=== PATIENT | male | born 1950 | race African-American/Black ===

== ENCOUNTER 2016-12-08 11:41 | Observation (INO) | payer MEDICARE, MEDICAID ==
[~2016-12-08] VITALS: Ht 160 cm; Wt 86.4 kg
[~2016-12-08 11:41] MED LIST: AMLODIPINE BES2.5 MG PO; AMLODIPINE2.5 MG PO; AMLODIPINE5 MG PO; ASPIRIN LOW DOS81 M2 PO; ATENOLOL25 MG PO; ATORVASTATIN CA10 MG PO; ATORVASTATIN CA40 MG PO; BACTRIM DS1 TAB PO; CARVEDILOL25 MG PO; COUMADIN5 MG PO; ELIQUIS5 MG PO; FUROSEMIDE40 MG PO; GLUCOTROL5 MG OR; HYDROCHLOROT12.5 MG PO; HYDROMORPHON8 MG PO; INSULIN; ISOSORBIDE MONO30 MG PO; LASIX 20 MG20 MG/TAB PO; LEVAQUIN500 MG PO; LEVOTHYROXIN75 MCG PO; LISINOPRIL20 MG PO; LOPID600 MG PO; LORTAB5 PO; METFORMIN500 M1 OR; METRONIDAZOL500 MG PO; MICRO-K10 ME1 PO; MINOCYCLINE100 MG PO; MIRALAX3350 NF PO; NOVOLIN 70/30 SC; NOVOLOG MIX100 U/ML SC; PANTOPRAZOLE SO40 MG PO; PERCOCET 10/31 COMBO PO; PLAVIX75 MG PO; PREVACID30 M3 PO; PRINZIDE/ZESTOR1 TAB OR; TERAZOSIN1 MG PO; TORSEMIDE20 M1 PO; VERAPAMIL240 MG OR; VITAMIN D350000 UNIT PO; WARFARIN5 MG PO; WARFARIN7.5 MG PO; ZOFRAN ODT8 MG PO
[2016-12-08 16:04] LABS: HEMATOCRIT 40.1 % (39.0-50.0); HEMOGLOBIN 12.9 g/dl (14.0-18.0); IMMATURE GRANULOCYTES 0.6 % (0.0-1.0); MEAN CELL VOLUME 88.3 fL CALC (80.0-100.0); MEAN CORPUSCULAR HGB 28.4 pG CALC (26.0-32.0); MEAN CORPUSCULAR HGB CONC 32.2 g/L CALC (32.0-36.0); NEUT# 1.4 thou/uL (1.82-7.42); RED BLOOD COUNT 4.54 mill/uL (4.70-6.10); RED CELL DISTRI WIDTH 13.7 % (11.5-15.5)
[2016-12-08 16:23] LABS: ALKALINE PHOSPHATASE 93 u/l (38-126); ANION GAP 12 (6-22 (CALC)); BILIRUBIN, TOTAL 0.5 mg/dL (0.0-1.4); BUN 15 mg/dL (8-23); BUN/CREATININE RATIO 16 (12-20 (CALC)); CALCIUM 8.7 mg/dL (8.4-10.2); CARBON DIOXIDE 26 mmol/l (22-30); CHLORIDE 100 mmol/l (95-108); CREATININE 0.9 mg/dL (0.7-1.3); GFR > 60 ML/MIN (>=60 (CALC)); GFR FOR AFR.AMER. > 60 ML/MIN (>=60 (CALC)); GLUCOSE 260 mg/dL (82-115); POTASSIUM 4.2 mmol/l (3.5-5.1); SGOT/AST 63 u/l (19-48); SGPT/ALT 53 u/l (11-66); SODIUM 135 mmol/l (137-146); TOTAL PROTEIN 7.1 g/dL (6.3-8.2)
[2016-12-08 16:35] LABS: MYOGLOBIN 51 ng/mL (0 - 121)
[2016-12-08 19:38] VITALS: BP 236/118
[2016-12-08 20:56] LABS: URINE BILIRUBIN - DIPSTICK NEGATIVE (NEGATIVE); URINE BLOOD DIPSTICK SMALL (NEGATIVE); URINE CLARITY CLEAR; URINE COLOR YELLOW; URINE GLUCOSE - DIPSTICK 500 mg/dL (NEGATIVE); URINE KETONE NEGATIVE (NEGATIVE); URINE LEUK ESTERASE NEGATIVE (NEGATIVE); URINE NITRITE - DIPSTICK NEGATIVE (Negative); URINE PH 6.5 (4.5-8.0); URINE PROTEIN - DIPSTICK >=300 mg/dL (NEG-TRACE); URINE SPECIFIC GRAVITY 1.025; URINE UROBILINOGEN - DIPSTICK >=8.0 E.U./dL (0.2)
[2016-12-08 21:00] VITALS: BP 186/96
[2016-12-08 21:21] LABS: URINE SQUAMOUS EPITHELIAL CELL FEW EPI/hpf (0-FEW)
[2016-12-08 21:22] LABS: BARBITURATES NEGATIVE (NEGATIVE); COCAINE POSITIVE (NEGATIVE); METHADONE NEGATIVE (NEGATIVE); OXCYCODONE NEGATIVE (NEGATIVE); TETRAHYDROCANNABIONOL NEGATIVE (NEGATIVE); TRICYLIC ANTIDEPRESSANTS NEGATIVE (NEGATIVE)
[2016-12-08 22:08] VITALS: BP 178/93
[2016-12-08 23:30] VITALS: BP 145/83
[2016-12-09 04:20] VITALS: BP 118/67
[2016-12-09 05:58] LABS: HEMATOCRIT 36.7 % (39.0-50.0); HEMOGLOBIN 12.4 g/dl (14.0-18.0); MEAN CELL VOLUME 87.4 fL CALC (80.0-100.0); MEAN CORPUSCULAR HGB 29.5 pG CALC (26.0-32.0); MEAN CORPUSCULAR HGB CONC 33.8 g/L CALC (32.0-36.0); RED BLOOD COUNT 4.2 mill/uL (4.70-6.10); RED CELL DISTRI WIDTH 13.8 % (11.5-15.5)
[2016-12-09 06:19] LABS: ANION GAP 10 (6-22 (CALC)); BUN 15 mg/dL (8-23); BUN/CREATININE RATIO 13 (12-20 (CALC)); CALCIUM 8.5 mg/dL (8.4-10.2); CARBON DIOXIDE 27 mmol/l (22-30); CHLORIDE 100 mmol/l (95-108); CREATININE 1.1 mg/dL (0.7-1.3); GFR > 60 ML/MIN (>=60 (CALC)); GFR FOR AFR.AMER. > 60 ML/MIN (>=60 (CALC)); GLUCOSE 274 mg/dL (82-115); MAGNESIUM 1.4 mg/dL (1.6-2.3); POTASSIUM 4.1 mmol/l (3.5-5.1); SODIUM 132 mmol/l (137-146)
[2016-12-09 06:50] LABS: TSH, 3RD GENERATION 1.21 uIU/mL (0.47 - 4.68)
[2016-12-09 07:36] VITALS: BP 130/68
[2016-12-09] MEDS ORDERED: CARVEDILOL25 MG PO (12:14)
[2016-12-09] MEDS ORDERED: ATORVASTATIN CA40 MG PO (12:14)
[2016-12-09] MEDS ORDERED: AMLODIPINE5 MG PO (12:14)
[2016-12-09] MEDS ORDERED: PANTOPRAZOLE SO40 MG PO (12:15)
[2016-12-09] MEDS ORDERED: TAMSULOSIN HCL0.4 MG PO (12:16)
[2016-12-09] MEDS ORDERED: LEVOTHYROXIN75 MCG PO (12:16)
[2016-12-09] MEDS ORDERED: NOVOLIN 70/30 SC (12:16)
[2016-12-09] MEDS ORDERED: BACTRIM DS1 TAB PO (12:17)
[2016-12-09] MEDS ORDERED: KEFLEX500 M1 PO (12:17)
[2016-12-09] MEDS ORDERED: HYZAAR1 TA1 PO (12:19)
[2016-12-09] MEDS ORDERED: ELIQUIS5 MG PO (12:30)
[2016-12-09 15:28] VITALS: BP 123/80
== END 2016-12-09 18:40 | disposition home or self-care (01) ==
LOC: ENPENDDIS → ED 11:41 → ED-I 16:40 → ED 17:23 → MS2 17:24
PROVIDERS: Emergency Medicine; ADMIT Internal Medicine; ATTEND Internal Medicine
PROC: 0H9BXZZ Drainage of Right Upper Arm Skin, External Approach (ICD-10-PCS; principal; 2016-12-08)
PROC: 0H9CXZZ Drainage of Left Upper Arm Skin, External Approach (ICD-10-PCS; 2016-12-08)
PROC: 05HM33Z Insertion of Infusion Device into Right Internal Jugular Vein, Percutaneous Approach (ICD-10-PCS; 2016-12-08)
PROC: B543ZZA Ultrasonography of Right Jugular Veins, Guidance (ICD-10-PCS; 2016-12-08)
DX: E11.628 Type 2 diabetes mellitus with other skin complications (principal); L02.414 Cutaneous abscess of left upper limb; L02.413 Cutaneous abscess of right upper limb; L03.114 Cellulitis of left upper limb; L03.113 Cellulitis of right upper limb; F14.10 Cocaine abuse, uncomplicated; I16.0 Hypertensive urgency; I12.9 Hypertensive chronic kidney disease with stage 1 through stage 4 chronic kidney disease, or unspecified chronic kidney disease; E11.22 Type 2 diabetes mellitus with diabetic chronic kidney disease; N18.3 Chronic kidney disease, stage 3 (moderate); E03.9 Hypothyroidism, unspecified; E78.5 Hyperlipidemia, unspecified; I25.10 Atherosclerotic heart disease of native coronary artery without angina pectoris; B19.20 Unspecified viral hepatitis C without hepatic coma; E11.65 Type 2 diabetes mellitus with hyperglycemia; Z79.4 Long term (current) use of insulin; Z86.718 Personal history of other venous thrombosis and embolism; Z91.14 Patient's other noncompliance with medication regimen; Z95.5 Presence of coronary angioplasty implant and graft

== ENCOUNTER 2017-09-06 09:06 | Emergency (ER) | payer MEDICARE, MEDICAID ==
[~2017-09-06] VITALS: Ht 160 cm; Wt 80.5 kg
[~2017-09-06 09:06] MED LIST changes: +HYZAAR1 TA1 PO; +KEFLEX500 M1 PO; +TAMSULOSIN HCL0.4 MG PO
[2017-09-06 09:40] LABS: HEMATOCRIT 41.8 % (39.0-50.0); HEMOGLOBIN 13.2 g/dl (14.0-18.0); IMMATURE GRANULOCYTES 0.7 % (0.0-1.0); MEAN CELL VOLUME 90.7 fL CALC (80.0-100.0); MEAN CORPUSCULAR HGB 28.6 pG CALC (26.0-32.0); MEAN CORPUSCULAR HGB CONC 31.6 g/L CALC (32.0-36.0); NEUT# 3.48 thou/uL (1.82-7.42); RED BLOOD COUNT 4.61 mill/uL (4.70-6.10); RED CELL DISTRI WIDTH 14.6 % (11.5-15.5)
[2017-09-06 10:13] LABS: BUN 17 mg/dL (8-23); BUN/CREATININE RATIO 15 (12-20 (CALC)); CARBON DIOXIDE 26 mmol/l (22-30); CHLORIDE 103 mmol/l (95-108); CREATININE 1.2 mg/dL (0.7-1.3); GFR > 60 ML/MIN (>=60 (CALC)); GFR FOR AFR.AMER. > 60 ML/MIN (>=60 (CALC)); SODIUM 138 mmol/l (137-146)
[2017-09-06 10:16] LABS: ANION GAP 14 (6-22 (CALC))
[2017-09-06] MEDS ORDERED: TERAZOSIN1 MG PO (10:23)
[2017-09-06] MEDS ORDERED: TRADJENTA5 MG PO (10:23)
[2017-09-06 11:18] VITALS: BP 169/93
== END 2017-09-06 11:10 | disposition short-term general hospital (02) ==
LOC: ED 09:06
PROVIDERS: Family Medicine
DX: I20.0 Unstable angina (principal); I10 Essential (primary) hypertension; I25.2 Old myocardial infarction; E78.00 Pure hypercholesterolemia, unspecified; E11.9 Type 2 diabetes mellitus without complications; Z79.4 Long term (current) use of insulin; F14.10 Cocaine abuse, uncomplicated; R94.31 Abnormal electrocardiogram [ECG] [EKG]; L03.114 Cellulitis of left upper limb; L03.113 Cellulitis of right upper limb

== ENCOUNTER 2019-01-13 11:50 | Emergency (ER) | payer MEDICARE, MEDICAID ==
[~2019-01-13] VITALS: Ht 160 cm; Wt 85.0 kg
[~2019-01-13 11:50] MED LIST changes: +TRADJENTA5 MG PO
[2019-01-13 12:44] LABS: HEMATOCRIT 36.9 % (39.0-50.0); IMMATURE GRANULOCYTES 0.5 % (0.0-5.0); MEAN CELL VOLUME 91.8 fL CALC (80.0-100.0); MEAN CORPUSCULAR HGB 29.9 pG CALC (26.0-32.0); MEAN CORPUSCULAR HGB CONC 32.5 g/L CALC (32.0-36.0); NEUT# 1.71 thou/uL (1.82-7.42); RED BLOOD COUNT 4.02 mill/uL (4.70-6.10); RED CELL DISTRI WIDTH 13.2 % (11.5-15.5)
[2019-01-13 13:06] LABS: ALBUMIN 3.4 g/dL (3.2-5.0); BILIRUBIN, TOTAL 0.5 mg/dL (0.0-1.4); CREATININE 1.9 mg/dL (0.7-1.3); TOTAL PROTEIN 7.6 g/dL (6.3-8.2)
[2019-01-13 13:07] LABS: POTASSIUM 3.5 mmol/l (3.5-5.1)
[2019-01-13 13:25] LABS: INTERNATIONAL NORMALIZED RATIO 1.1 RATIO (0.7-1.3); PROTHROMBIN TIME 11.5 SECONDS (9.0-12.5)
[2019-01-13 13:41] LABS: URINE BILIRUBIN - DIPSTICK NEGATIVE (NEGATIVE); URINE BLOOD DIPSTICK MODERATE (NEGATIVE); URINE COLOR YELLOW; URINE GLUCOSE - DIPSTICK 100 mg/dL (NEGATIVE); URINE KETONE NEGATIVE (NEGATIVE); URINE PROTEIN - DIPSTICK >=300 mg/dL (NEG-TRACE); URINE SPECIFIC GRAVITY 1.015; URINE UROBILINOGEN - DIPSTICK 0.2 E.U./dL (0.2)
[2019-01-13 13:43] LABS: URINE LEUK ESTERASE MODERATE (NEGATIVE); URINE NITRITE - DIPSTICK POSITIVE (Negative)
[2019-01-13 13:45] LABS: URINE BACTERIA MODERATE hpf; URINE EPITHELIAL CELLS FEW EPI/hpf (0-FEW)
[2019-01-13] MEDS ORDERED: CEPHALEXIN500 M1 PO ×2 (14:44→15:55)
[2019-01-13 16:30] VITALS: BP 175/82
== END 2019-01-13 16:30 | disposition home or self-care (01) ==
LOC: ED 11:50
PROVIDERS: Emergency Medicine
DX: S01.01XA Laceration without foreign body of scalp, initial encounter (principal); S13.9XXA Sprain of joints and ligaments of unspecified parts of neck, initial encounter; N39.0 Urinary tract infection, site not specified; E11.9 Type 2 diabetes mellitus without complications; I10 Essential (primary) hypertension; I25.2 Old myocardial infarction; W18.30XA Fall on same level, unspecified, initial encounter; Y92.002 Bathroom of unspecified non-institutional (private) residence as the place of occurrence of the external cause; B95.61 Methicillin susceptible Staphylococcus aureus infection as the cause of diseases classified elsewhere

== ENCOUNTER 2019-02-02 18:00 | Emergency (ER) | payer MEDICARE, MEDICAID ==
[~2019-02-02] VITALS: Ht 160 cm; Wt 202.0 kg
[~2019-02-02 18:00] MED LIST changes: +CEPHALEXIN500 M1 PO
[2019-02-02 19:30] LABS: HEMOGLOBIN 11.7 g/dl (14.0-18.0); IMMATURE GRANULOCYTES 0.4 % (0.0-5.0); MEAN CORPUSCULAR HGB 29.4 pG CALC (26.0-32.0); MEAN CORPUSCULAR HGB CONC 31.6 g/L CALC (32.0-36.0); NEUT# 5.24 thou/uL (1.82-7.42); RED BLOOD COUNT 3.98 mill/uL (4.70-6.10); RED CELL DISTRI WIDTH 14.1 % (11.5-15.5)
[2019-02-02 19:52] LABS: ALBUMIN 3.3 g/dL (3.2-5.0); CREATININE 1.8 mg/dL (0.7-1.3); POTASSIUM 3.8 mmol/l (3.5-5.1); TOTAL PROTEIN 7.8 g/dL (6.3-8.2)
[2019-02-02 19:56] LABS: BILIRUBIN, TOTAL 0.9 mg/dL (0.0-1.4)
[2019-02-02 20:22] LABS: TSH, 3RD GENERATION 3.07 uIU/mL (0.47 - 4.68)
[2019-02-02 22:38] LABS: URINE BILIRUBIN - DIPSTICK NEGATIVE (NEGATIVE); URINE BLOOD DIPSTICK SMALL (NEGATIVE); URINE COLOR YELLOW; URINE GLUCOSE - DIPSTICK 100 mg/dL (NEGATIVE); URINE KETONE NEGATIVE (NEGATIVE); URINE LEUK ESTERASE NEGATIVE (NEGATIVE); URINE NITRITE - DIPSTICK NEGATIVE (Negative); URINE PROTEIN - DIPSTICK >=300 mg/dL (NEG-TRACE); URINE SPECIFIC GRAVITY 1.025
[2019-02-02 22:41] LABS: BARBITURATES NEGATIVE (NEGATIVE); COCAINE POSITIVE (NEGATIVE); METHADONE NEGATIVE (NEGATIVE); TETRAHYDROCANNABIONOL NEGATIVE (NEGATIVE); TRICYLIC ANTIDEPRESSANTS NEGATIVE (NEGATIVE); URINE AMORPH SEDIMENT FEW hpf (NONE-FER); URINE WBC 0-2 WBC/hpf (0-5)
[2019-02-02 22:42] LABS: OXCYCODONE NEGATIVE (NEGATIVE)
[2019-02-02 23:35] VITALS: BP 172/68
== END 2019-02-02 23:55 | disposition home or self-care (01) ==
LOC: ED 18:00
PROVIDERS: Emergency Medicine; Family Medicine
DX: R53.1 Weakness (principal); F14.90 Cocaine use, unspecified, uncomplicated; E11.9 Type 2 diabetes mellitus without complications; I10 Essential (primary) hypertension; I25.10 Atherosclerotic heart disease of native coronary artery without angina pectoris; I25.2 Old myocardial infarction

== ENCOUNTER 2019-03-27 08:13 | Emergency (ER) | payer MEDICARE, MEDICAID ==
[~2019-03-27] VITALS: Ht 160 cm; Wt 85.0 kg
[2019-03-27 09:42] LABS: HEMATOCRIT 36.4 % (39.0-50.0); HEMOGLOBIN 11.8 g/dl (14.0-18.0); IMMATURE GRANULOCYTES 0.3 % (0.0-5.0); MEAN CELL VOLUME 88.6 fL CALC (80.0-100.0); MEAN CORPUSCULAR HGB 28.7 pG CALC (26.0-32.0); MEAN CORPUSCULAR HGB CONC 32.4 g/L CALC (32.0-36.0); NEUT# 3.7 thou/uL (1.82-7.42); RED BLOOD COUNT 4.11 mill/uL (4.70-6.10); RED CELL DISTRI WIDTH 13.4 % (11.5-15.5)
[2019-03-27 10:03] LABS: ALBUMIN 3.5 g/dL (3.2-5.0); BILIRUBIN, TOTAL 0.7 mg/dL (0.0-1.4); CREATININE 1.6 mg/dL (0.7-1.3); POTASSIUM 4.6 mmol/l (3.5-5.1); TOTAL PROTEIN 8.5 g/dL (6.3-8.2)
[2019-03-27] MEDS ORDERED: MEDDOSEPAK PO (10:21)
[2019-03-27] MEDS ORDERED: FLEXERIL PO (10:21)
[2019-03-27 10:31] VITALS: BP 183/82
== END 2019-03-27 11:10 | disposition home or self-care (01) ==
LOC: ED 08:13
PROVIDERS: Emergency Medicine
DX: M54.5 Low back pain (principal)

== ENCOUNTER 2019-03-29 21:35 | Emergency (ER) | payer MEDICARE, MEDICAID ==
[~2019-03-29] VITALS: Ht 160 cm; Wt 81.8 kg
[~2019-03-29 21:35] MED LIST changes: +FLEXERIL PO; +MEDDOSEPAK PO
[2019-03-29] MEDS ORDERED: LOSARTAN POTASS50 MG PO (21:55)
[2019-03-29] MEDS ORDERED: HYDROMORPHON8 MG PO (21:55)
[2019-03-29] MEDS ORDERED: CARVEDILOL25 MG PO (21:55)
[2019-03-29] MEDS ORDERED: ATORVASTATIN CA40 MG PO (21:55)
[2019-03-29] MEDS ORDERED: PANTOPRAZOLE SO40 M1 PO (21:55)
[2019-03-29] MEDS ORDERED: AMLODIPINE BESYL5 MG PO (21:56)
[2019-03-29] MEDS ORDERED: ELIQUIS5 MG PO (21:56)
[2019-03-29 22:09] LABS: HEMATOCRIT 31.8 % (39.0-50.0); HEMOGLOBIN 10.5 g/dl (14.0-18.0); IMMATURE GRANULOCYTES 0.5 % (0.0-5.0); MEAN CELL VOLUME 86.4 fL CALC (80.0-100.0); MEAN CORPUSCULAR HGB 28.5 pG CALC (26.0-32.0); NEUT# 8.65 thou/uL (1.82-7.42); RED BLOOD COUNT 3.68 mill/uL (4.70-6.10); RED CELL DISTRI WIDTH 13.2 % (11.5-15.5)
[2019-03-29 22:19] LABS: BILIRUBIN, TOTAL 0.5 mg/dL (0.0-1.4); CREATININE 1.6 mg/dL (0.7-1.3); POTASSIUM 4.4 mmol/l (3.5-5.1); TOTAL PROTEIN 7.8 g/dL (6.3-8.2)
[2019-03-29 23:22] LABS: URINE BILIRUBIN - DIPSTICK NEGATIVE (NEGATIVE); URINE BLOOD DIPSTICK MODERATE (NEGATIVE); URINE COLOR YELLOW; URINE GLUCOSE - DIPSTICK >=1000 mg/dL (NEGATIVE); URINE KETONE NEGATIVE (NEGATIVE); URINE LEUK ESTERASE NEGATIVE (NEGATIVE); URINE NITRITE - DIPSTICK NEGATIVE (Negative); URINE PROTEIN - DIPSTICK >=300 mg/dL (NEG-TRACE); URINE SPECIFIC GRAVITY 1.025
[2019-03-29 23:24] LABS: URINE EPITHELIAL CELLS FEW EPI/hpf (0-FEW); URINE MUCUS MODERATE hpf (NONE-FEW)
[2019-03-29 23:25] LABS: BARBITURATES NEGATIVE (NEGATIVE); COCAINE POSITIVE (NEGATIVE); METHADONE NEGATIVE (NEGATIVE); OXCYCODONE NEGATIVE (NEGATIVE); TETRAHYDROCANNABIONOL NEGATIVE (NEGATIVE); TRICYLIC ANTIDEPRESSANTS NEGATIVE (NEGATIVE)
[2019-03-30] VITALS: BP 146/82
== END 2019-03-30 00:05 | disposition home or self-care (01) ==
LOC: ED 21:35
PROVIDERS: Family Medicine
DX: S39.012A Strain of muscle, fascia and tendon of lower back, initial encounter (principal); S30.0XXA Contusion of lower back and pelvis, initial encounter; F14.10 Cocaine abuse, uncomplicated; R31.9 Hematuria, unspecified; I12.9 Hypertensive chronic kidney disease with stage 1 through stage 4 chronic kidney disease, or unspecified chronic kidney disease; E11.22 Type 2 diabetes mellitus with diabetic chronic kidney disease; E11.21 Type 2 diabetes mellitus with diabetic nephropathy; N18.9 Chronic kidney disease, unspecified; I25.10 Atherosclerotic heart disease of native coronary artery without angina pectoris; I25.2 Old myocardial infarction; T46.5X6A Underdosing of other antihypertensive drugs, initial encounter; W19.XXXA Unspecified fall, initial encounter; Z91.128 Patient's intentional underdosing of medication regimen for other reason; Z91.81 History of falling

== ENCOUNTER 2019-04-02 15:05 | Emergency (ER) | payer MEDICARE, MEDICAID ==
[~2019-04-02] VITALS: Ht 160 cm; Wt 81.0 kg
[~2019-04-02 15:05] MED LIST changes: +AMLODIPINE BESYL5 MG PO; +LOSARTAN POTASS50 MG PO; +PANTOPRAZOLE SO40 M1 PO
[2019-04-02] MEDS ORDERED: STERAPRED DS10 MG PO (18:20)
[2019-04-02 18:33] VITALS: BP 154/90
[2019-04-02 18:49] LABS: URINE BILIRUBIN - DIPSTICK NEGATIVE (NEGATIVE); URINE BLOOD DIPSTICK SMALL (NEGATIVE); URINE COLOR YELLOW; URINE GLUCOSE - DIPSTICK 100 mg/dL (NEGATIVE); URINE KETONE NEGATIVE (NEGATIVE); URINE LEUK ESTERASE NEGATIVE (NEGATIVE); URINE NITRITE - DIPSTICK NEGATIVE (Negative); URINE PH 5.5 (4.5-8.0); URINE PROTEIN - DIPSTICK 100 mg/dL (NEG-TRACE); URINE SPECIFIC GRAVITY 1.025
[2019-04-02 18:52] LABS: URINE SQUAMOUS EPITHELIAL CELL FEW EPI/hpf (0-FEW)
[2019-04-02 18:54] LABS: BARBITURATES NEGATIVE (NEGATIVE); COCAINE POSITIVE (NEGATIVE); METHADONE NEGATIVE (NEGATIVE); OXCYCODONE NEGATIVE (NEGATIVE); TETRAHYDROCANNABIONOL NEGATIVE (NEGATIVE); TRICYLIC ANTIDEPRESSANTS POSITIVE (NEGATIVE)
== END 2019-04-02 19:00 | disposition home or self-care (01) ==
LOC: ED 15:05
PROVIDERS: Family Medicine
DX: I10 Essential (primary) hypertension (principal); G89.29 Other chronic pain; E11.9 Type 2 diabetes mellitus without complications; I25.2 Old myocardial infarction; M54.5 Low back pain

== ENCOUNTER 2022-08-30 05:53 | Emergency (ER) | payer MEDICARE, MEDICAID ==
[~2022-08-30] VITALS: Ht 160 cm; Wt 79.0 kg
[~2022-08-30 05:53] MED LIST changes: +STERAPRED DS10 MG PO
[2022-08-30 06:28] VITALS: BP 158/82
== END 2022-08-30 06:30 | disposition left against medical advice (07) ==
LOC: ED 05:53
DX: R53.1 Weakness (principal); I12.0 Hypertensive chronic kidney disease with stage 5 chronic kidney disease or end stage renal disease; E11.22 Type 2 diabetes mellitus with diabetic chronic kidney disease; N18.6 End stage renal disease; Z99.2 Dependence on renal dialysis; I25.2 Old myocardial infarction; E78.00 Pure hypercholesterolemia, unspecified; Z53.29 Procedure and treatment not carried out because of patient's decision for other reasons

== ENCOUNTER 2022-12-12 07:43 | Observation (INO) | payer MEDICARE, MEDICAID ==
[2022-12-12] VITALS (42 sets, daily range): BP systolic 114–186; BP diastolic 74–109
[~2022-12-12] VITALS: Ht 160 cm; Wt 82.3 kg
--- NOTE | 2022-12-12 07:43 | NUR ---
PATIENT TO ROOM VIA EMS
--- NOTE | 2022-12-12 08:16 | NUR ---
AT BEDSIDE FOR CENTRAL LINE INSERTION. CONSENT ON FILE. HE REVIEWED PLAN OF CARE WITH PATIENT.
--- NOTE | 2022-12-12 08:20 | NUR ---
WHILE INSERTION OF CENTRAL LINE IN PROGRESS, DR. BARKER GAVE VERBAL ORDER TO GIVE 1 0.4MG SUB LING NTG. CENTRAL LINE IN THE RIGHT GROIN COMPLETED , TRIPLE LUMEN. NTG GTT INITIATED AT 20MCG. BP 186/105
--- NOTE | 2022-12-12 08:34 | NUR ---
VERBAL ORDER GIVEN AT BEDSIDE BY DR. BARKER TO INCREASE NTG GTT TO 50MCG/HR. RECYCLED BP IS 154/98. PATIENT STATES HE FEEL BETTER AND BREATHING HAS IMPROVED.
[2022-12-12 08:51] LABS: ALBUMIN 4.1 g/dL (3.2-5.0); BILIRUBIN, TOTAL 0.7 mg/dL (0.2-1.3); POTASSIUM 4.6 mmol/l (3.5-5.1); TOTAL PROTEIN 8.7 g/dL (6.3-8.2)
[2022-12-12 08:58] LABS: CREATININE 7.8 mg/dL (0.7-1.3)
[2022-12-12 08:59] LABS: BASO% 0.4 % (0-3); EOS% 1.8 % (0-8); IMMATURE GRANULOCYTES 0.4 % (0.0-5.0); MEAN CELL VOLUME 99.4 fL CALC (80.0-100.0); MEAN CORPUSCULAR HGB 30.7 pG CALC (26.0-32.0); MEAN CORPUSCULAR HGB CONC 30.9 g/dL CAL (32.0-36.0); MONO% 10.6 % (2-13); NEUT# 3.06 thou/uL (1.82-7.42); NEUT% 67.8 % (42-76); RED BLOOD COUNT 3.13 mill/uL (4.70-6.10); RED CELL DISTRI WIDTH 13.4 % (11.5-15.5)
[2022-12-12 09:03] LABS: HEMATOCRIT 31.1 % (39.0-50.0); HEMOGLOBIN 9.6 g/dl (14.0-18.0)
--- NOTE | 2022-12-12 09:16 | NUR ---
BP 146/94 . NTG GTT INCREASED TO 60MCG/HR. PATIENT IN NO DISTRESS.
--- NOTE | 2022-12-12 10:04 | NUR ---
NTG GTT MAINTAINED AT 60MCG/HR. BP 129/78. PATIENT EAT BREAKFAST AND IS NOW RESTING. NO RESPIRATORY DISTRESS.
[2022-12-12] MEDS ORDERED: CALCIUM ACETAT667 M1 PO (10:05)
[2022-12-12] MEDS ORDERED: VISTARIL PO (10:12)
--- NOTE | 2022-12-12 11:00 | NUR ---
PATIENT SLEEPING. NO0 DISTRESS. NTG GTT REMAINS INFUSING AT 60MCG/HR.
--- NOTE | 2022-12-12 12:23 | NUR ---
VERBAL REPORT GIVEN TO ICU NURSE. PATIENT TRANSFERED TO ICU.
--- NOTE | 2022-12-12 13:00 | NUR ---
PT ARRIVES TO ROOM 6 VIA STRETCHER FROM ER, SEEN ALERT AND ORIENTED X 3. LUNGS ARE SIGNIFICANTLY DIMINISHED, USING 4 LPM NC. PT ABLE TO ANSWER ADMISSION QUESTIONS APPROPRIATELY.
--- NOTE | 2022-12-12 16:50 | NUR ---
PT BROUGHT TO DIALYSIS TREATMENT ROOM FOR PRESCRIBED HEMODIALYSIS FROM ICU BED 6 VIA WHEELCHAIR. HAND-OFF REPORT RECEIVED FROM PRIMARY NURSE Jimy RAY RN. CARE OF PT ASSUMED AT THIS TIME. ICU TRAINED NURSE PRESENT IN DIALYSIS ROOM WELL.
--- NOTE | 2022-12-12 17:01 | NUR ---
HEMODIALYSIS TREATMENT INITIATED AT 1701. SEE HEMODIALYSIS TREATMENT PROCESS INTERVENTION AND TABLO TREATMENT FLOWSHEET FOR TREATMENT SPECIFIC DETAILS.
--- NOTE | 2022-12-12 20:26 | NUR ---
HEMODIALYSIS TREATMENT COMPLETED AT 2025. SEE HEMODIALYSIS TREATMENT PROCESS INTERVENTION AND TABLO TREATMENT FLOWSHEET FOR TREATMENT SPECIFIC DETAILS.
--- NOTE | 2022-12-12 21:00 | NUR ---
POST HEMODIALYSIS PT RETURNED TO ICU BED 6 VIA WHEELCHAIR WITH ASSIST OF 2 CNAS. HAND-OFF REPORT ENDORSED TO PRIMARY NURSE Skylar PINO LPN. CARE OF PT SURRENDERED AT THIS TIME.
--- NOTE | 2022-12-12 21:05 | NUR ---
rec'd per wc from dialysis to icu 6. assisted into bed. pt is sob with ANY activity. o2 cont per nc. vehicle monitor technician shows sinus rhythm pacs pvcs. rt groin tlc in place. fall precautions cont. supper meal given.
[2022-12-13] VITALS (33 sets, daily range): BP systolic 120–180; BP diastolic 70–102
--- NOTE | 2022-12-13 00:01 | NUR ---
eyes closed. no distress. rn cardiac cath shows sinus rhythm pacs pvcs.
--- NOTE | 2022-12-13 02:00 | NUR ---
resting quietly. resps unlabored. o2 cont.
--- NOTE | 2022-12-13 04:10 | NUR ---
blood drawn & sent to lab.
[2022-12-13 05:35] LABS: ALBUMIN 3.6 g/dL (3.2-5.0)
[2022-12-13 05:42] LABS: CREATININE 5.1 mg/dL (0.7-1.3)
--- NOTE | 2022-12-13 05:48 | NUR ---
has not voided this shift.
--- NOTE | 2022-12-13 08:38 | NUR ---
RECEIVED REPORT FROM ABEL DUMONT. PATEINT UPRIGHT IN BED, ALERT AND ORIENTED. NO C/O OF PAIN, SOB UPON MINIMAL EXERTION. 3L OF O2 VIA NASAL CANNULA FLOWING. BED IN LOW POSITION, CALL LIGHT WITHIN REACH.
--- NOTE | 2022-12-13 10:14 | NUR ---
PATIENT MOVED TO ROOM 8 BECAUSE ROOM 6 IS TOO COLD. PATIENT COMFORTABLE SITTING UP IN BED SLEEPING INTERMITTENTLY. BP AND OTHER VITALS STABLE, NITRO DRIP TITRATED TO 10ML/HR. NO C/O OF PAIN. BED IN LOW POSITION WITH CALL LIGHT WITHIN REACH.
--- NOTE | 2022-12-13 13:09 | NUR ---
PT CONTINUES OOB IN CHAIR AT BEDSIDE, NO DISTRESS NOTED. NTG DRIP OFF, BP 151/87. PT WITH CHRONIC SHORTNESS OF BREATH, SPEAKS IN 3-4 WORD SENTENCES. OXYGEN IS 4 LPM, HOME OXYGEN IS 3 LPM.
--- NOTE | 2022-12-13 16:27 | NUR ---
NO CHANGE IN STATUS PT REMAINS IN CHAIR AT BEDSIDE. NO SHORTNESS OF BREATH PT NOT MOVING AROUND IN CHAIR.
--- NOTE | 2022-12-13 18:30 | NUR ---
PT BROUGHT TO DIALYSIS TREATMENT ROOM FOR PRESCRIBED HEMODIALYSIS FROM ICU BED 8 VIA WHEELCHAIR. HAND-OFF REPORT RECEIVED FROM PRIMARY NURSE Jimy RAY RN. CARE OF PT ASSUMED AT THIS TIME.
--- NOTE | 2022-12-13 18:45 | NUR ---
ATTEMPTED TO ACCESS PATIENT AVG X2. UNSUCCESSFUL. 2X2 GAUZE USED WITH SLIGHT PRESSURE TO SITES. Sally FLOYD RN PRESENT TO MAKE ATTEMPTS TO ACCESS PATIENT SITE. SITE APPEARS VERY POSITIONAL.
--- NOTE | 2022-12-13 19:06 | NUR ---
REPORT RECEIVED FROM OFF GOING NURSE. PATIENT IN DIALYSIS.
--- NOTE | 2022-12-13 20:01 | NUR ---
HEMODIALYSIS TREATMENT INITIATED AT 2000. SEE HEMODIALYSIS TREATMENT PROCESS INTERVENTION AND TABLO TREATMENT FLOWSHEET FOR TREATMENT SPECIFIC DETAILS.
--- NOTE | 2022-12-13 23:36 | NUR ---
HEMODIALYSIS TREATMENT COMPLETED AT 2336. SEE HEMODIALYSIS TREATMENT PROCESS INTERVENTION AND TABLO TREATMENT FLOWSHEET FOR TREATMENT SPECIFIC DETAILS.
--- NOTE | 2022-12-13 23:50 | NUR ---
PT RETURNED TO ICU 8 VIA WHEELCHAIR, TRANSFERRED WITH 02@4L/M AND PORTABLE MOTION PICTURE ACTOR ON. PT IN STABLE CONDITION. HAND-OFF REPORT ENDORSED TO Forest SALEEM AT BEDSIDE.
--- NOTE | 2022-12-13 23:52 | NUR ---
PATIENT BACK FROM DIALYSIS. TRANSPORTED IN WHEELCHAIR ACCOMPAINIED BY NURSE. BEDSIDE REPORT RECEIVED. ASSESSMENT COMPLETED, WILL CONTINUE TO MONITOR.
[2022-12-14] VITALS (29 sets, daily range): BP systolic 127–168; BP diastolic 74–105
--- NOTE | 2022-12-14 02:00 | NUR ---
PATIENT LYING IN BED RESTING COMFORTABLY WITH NO ACUTE DISTRESS NOTED. HE DENIES ANY PAIN OR DISCOMFORT AT THIS TIME. VSS. BED LOCKED, IN LOW POSITION, CALL LIGHT WITHIN REACH. WILL CONTINUE TO MONITOR.
--- NOTE | 2022-12-14 03:58 | NUR ---
PATIENT ASSISTED WITH GETTING INTO CHAIR. SHORTNESS OF BREATH WITH MINIMAL EXERTION NOTED. NO ACUTE DISTRESS NOTED. CALL LIGHT WITHIN REACH. WILL CONTINUE TO MONITOR.
[2022-12-14 05:53] LABS: HEMATOCRIT 30.8 % (39.0-50.0); HEMOGLOBIN 9.3 g/dl (14.0-18.0); MEAN CORPUSCULAR HGB 30.5 pG CALC (26.0-32.0); MEAN CORPUSCULAR HGB CONC 30.2 g/dL CAL (32.0-36.0); RED BLOOD COUNT 3.05 mill/uL (4.70-6.10); RED CELL DISTRI WIDTH 13.5 % (11.5-15.5)
[2022-12-14 05:59] LABS: ALBUMIN 3.8 g/dL (3.2-5.0); BILIRUBIN, TOTAL 0.7 mg/dL (0.2-1.3); MAGNESIUM 1.6 mg/dL (1.6-2.3); POTASSIUM 4.3 mmol/l (3.5-5.1); TOTAL PROTEIN 8.3 g/dL (6.3-8.2)
--- NOTE | 2022-12-14 06:00 | NUR ---
PATIENT NOTED SITTING UP IN CHAIR WITH NO ACUTE DISTRESS NOTED. HE DENIES ANY PAIN OR DISCOMFORT. VSS. CALL LIGHT WITHIN REACH.
--- NOTE | 2022-12-14 08:15 | NUR ---
PT UP IN CHAIR, EXPERIENCING DYSPNEA UPON EXERTION, PT IN NO DISTRESS. PT IS ON 3 LITERS VIA NC STATING AT 98%. PT DENIES ANY PAIN. BLISTER NOTED TO THE LEFT LOWER EXTREMITY. LINENS CHANGED
--- NOTE | 2022-12-14 13:20 | NUR ---
PT ESCORTED FROM ED TO DIALYSIS SUITE FOR PRESCRIBED DIALYSIS TREATMENT. PT TRANSPORT WITH WHEELCHAIR. INSIST ON AMBULATING. PT ACCOMPANIED BY Sally FLOYD RN. GAIT STEADY AND BALANCED. HAND-OFF REPORT RECEIVED FROM IGNACIA ICU NURSE.
--- NOTE | 2022-12-14 13:28 | NUR ---
HEMODIALYSIS TREATMENT INITIATED AT 1328 SEE HEMODIALYSIS TREATMENT PROCESS INTERVENTION AND TABLO TREATMENT FLOWSHEET FOR TREATMENT SPECIFIC DETAILS.
--- NOTE | 2022-12-14 15:00 | NUR ---
PT ESCORTED FROM ED TO DIALYSIS SUITE FOR PRESCRIBED DIALYSIS TREATMENT. PT TRANSPORT WITH WHEELCHAIR. PT ACCOMPANIED BY TITO UGALDE. GAIT STEADY AND BALANCED. HAND-OFF REPORT RECEIVED FROM MONIQUE DUMONT.
--- NOTE | 2022-12-14 15:28 | NUR ---
HEMODIALYSIS TREATMENT INITIATED AT 1528 SEE HEMODIALYSIS TREATMENT PROCESS INTERVENTION AND TABLO TREATMENT FLOWSHEET FOR TREATMENT SPECIFIC DETAILS.
--- NOTE | 2022-12-14 16:56 | NUR ---
HEMODIALYSIS TREATMENT COMPLETED AT 1656 SEE HEMODIALYSIS TREATMENT PROCESS INTERVENTION AND TABLO TREATMENT FLOWSHEET FOR TREATMENT SPECIFIC DETAILS.
--- NOTE | 2022-12-14 16:58 | NUR ---
1305- pt to dialysis
--- NOTE | 2022-12-14 17:35 | NUR ---
PT FROM DIALYSIS. PT IS STABLE AND BEING D/C HOME.
== END 2022-12-14 17:50 | disposition home health service (06) ==
LOC: ED 07:43 → ED-I 10:29 → ED 11:00 → ICU 11:01
PROVIDERS: Family Medicine; Internal Medicine Nephrology; ADMIT Internal Medicine; ATTEND Internal Medicine
PROC: 06HY33Z Insertion of Infusion Device into Lower Vein, Percutaneous Approach (ICD-10-PCS; principal; 2022-12-12)
PROC: 5A1D70Z Performance of Urinary Filtration, Intermittent, Less than 6 Hours Per Day (ICD-10-PCS; 2022-12-12)
PROC: 5A1D70Z Performance of Urinary Filtration, Intermittent, Less than 6 Hours Per Day (ICD-10-PCS; 2022-12-13)
PROC: 5A1D70Z Performance of Urinary Filtration, Intermittent, Less than 6 Hours Per Day (ICD-10-PCS; 2022-12-14)
DX: I12.0 Hypertensive chronic kidney disease with stage 5 chronic kidney disease or end stage renal disease (principal); E11.22 Type 2 diabetes mellitus with diabetic chronic kidney disease; N18.6 End stage renal disease; J96.01 Acute respiratory failure with hypoxia; E03.9 Hypothyroidism, unspecified; I25.10 Atherosclerotic heart disease of native coronary artery without angina pectoris; N25.81 Secondary hyperparathyroidism of renal origin; Z99.2 Dependence on renal dialysis; D63.1 Anemia in chronic kidney disease; I25.2 Old myocardial infarction; E78.5 Hyperlipidemia, unspecified; B19.20 Unspecified viral hepatitis C without hepatic coma; F14.10 Cocaine abuse, uncomplicated; Z86.718 Personal history of other venous thrombosis and embolism; Z95.5 Presence of coronary angioplasty implant and graft; Z20.822 Contact with and (suspected) exposure to COVID-19
CPT/HCPCS: Q5106 EC